=== PATIENT | male | born 1950 | race Caucasian/White ===

== ENCOUNTER → 2016-08-28 | Outpatient (CLI) | payer OTHER ==
[~2016-08-28] MED LIST: ABILIFY15 MG PO; CORDARONE 200M200 MG PO; DILTIAZEM 12HR60 MG PO; DILTIAZEM 24HR120 M1 PO; ELIQUIS5 MG PO; LANOXIN TAB0.125 MG PO; METOPROLOL SUC100 MG PO; WELLBUTRIN SR150 M1 PO
== END ==
LOC: CT 08-27 09:00 → OPSV 09:58 → CT 13:00
DX: D75.1 Secondary polycythemia (principal); R91.8 Other nonspecific abnormal finding of lung field
CPT/HCPCS: 70491; 71260; 74160; 96360; 96366; J7030; J7050; Q9962

== ENCOUNTER → 2016-10-01 | Outpatient (CLI) | payer OTHER | LOC: HEART 5 09:07 | DX: I10 Essential (primary) hypertension (principal); I48.2 Chronic atrial fibrillation | CPT/HCPCS: 93306 ==

== ENCOUNTER 2016-10-22 22:15 | Inpatient (IN) | payer OTHER ==
[~2016-10-22] VITALS: Ht 188 cm; Wt 109.0 kg
[2016-10-22 23:12] LABS: RED BLOOD COUNT 5.71 M/UL (4.20-5.50)
[2016-10-22 23:13] LABS: WHITE BLOOD COUNT 23.2 K/UL (4.5-11.0)
[2016-10-23] MEDS ORDERED: ELIQUIS5 MG PO (02:55)
[2016-10-23] MEDS ORDERED: LANOXIN TAB0.125 MG PO (02:55)
[2016-10-23] MEDS ORDERED: WELLBUTRIN SR150 M1 PO (02:55)
[2016-10-23] MEDS ORDERED: ABILIFY15 MG PO (02:56)
[2016-10-23] MEDS ORDERED: METOPROLOL SUC100 MG PO (02:56)
[2016-10-23] MEDS ORDERED: DILTIAZEM 24HR120 M1 PO (02:56)
[2016-10-23] MEDS ORDERED: CORDARONE 200M200 MG PO (02:58)
[2016-10-23] MEDS ORDERED: DILTIAZEM 12HR60 MG PO (02:58)
[2016-10-23 04:31] LABS: HEMOGLOBIN 18.9 gm/dl (14.0-17.5); RED BLOOD COUNT 5.97 M/UL (4.20-5.50)
[2016-10-23 05:05] LABS: WHITE BLOOD COUNT 26.8 K/UL (4.5-11.0)
[2016-10-23 11:20] LABS: HEMOGLOBIN 18.2 gm/dl (14.0-17.5); RED BLOOD COUNT 5.74 M/UL (4.20-5.50)
[2016-10-23 11:40] LABS: WHITE BLOOD COUNT 13.4 K/UL (4.5-11.0)
[2016-10-23 11:43] LABS: BUN/CREATININE RATIO 16 (0-10)
[2016-10-23 16:58] LABS: WHITE BLOOD COUNT 14.6 K/UL (4.5-11.0)
[2016-10-23 17:10] LABS: HEMOGLOBIN 16.1 gm/dl (14.0-17.5); RED BLOOD COUNT 5.13 M/UL (4.20-5.50)
[2016-10-23 22:11] LABS: GAMMA GLUTAMYL TRANSPEPTIDASE 44 U/L (7-64)
== END 2016-10-24 00:15 | disposition expired | DRG 871 ==
LOC: ER1 22:15 → ZEROF 10-23 00:44 → CCU 10-23 00:44
PROVIDERS: Internal Medicine; Internal Medicine Nephrology; Specialist/Technologist Athletic Trainer; ADMIT Internal Medicine
PROC: 5A1945Z Respiratory Ventilation, 24-96 Consecutive Hours (ICD-10-PCS; principal; 2016-10-23)
PROC: 05HM33Z Insertion of Infusion Device into Right Internal Jugular Vein, Percutaneous Approach (ICD-10-PCS; 2016-10-23)
PROC: B513ZZA Fluoroscopy of Right Jugular Veins, Guidance (ICD-10-PCS; 2016-10-23)
DX: A41.9 Sepsis, unspecified organism (principal); J96.01 Acute respiratory failure with hypoxia; R65.21 Severe sepsis with septic shock; N17.0 Acute kidney failure with tubular necrosis; E87.2 Acidosis; D68.9 Coagulation defect, unspecified; I42.0 Dilated cardiomyopathy; J90 Pleural effusion, not elsewhere classified; J98.11 Atelectasis; R18.8 Other ascites; N12 Tubulo-interstitial nephritis, not specified as acute or chronic; E87.5 Hyperkalemia; R00.1 Bradycardia, unspecified; D75.1 Secondary polycythemia; I48.91 Unspecified atrial fibrillation; I10 Essential (primary) hypertension; Z66 Do not resuscitate; F32.9 Major depressive disorder, single episode, unspecified; Z98.890 Other specified postprocedural states; Z79.02 Long term (current) use of antithrombotics/antiplatelets; Z79.899 Other long term (current) drug therapy; Z82.49 Family history of ischemic heart disease and other diseases of the circulatory system; E66.9 Obesity, unspecified; Z68.30 Body mass index [BMI] 30.0-30.9, adult; D72.829 Elevated white blood cell count, unspecified; F41.9 Anxiety disorder, unspecified; E03.9 Hypothyroidism, unspecified; I95.9 Hypotension, unspecified; I50.9 Heart failure, unspecified
CPT/HCPCS: 31500; 36415; 36600; 71010; 71250; 80048; 80053; 80162; 81001; 82150; 82550; 82553; 82803; 82977; 83605; 83615; 83690; 83735; 83874; 83880; 84100; 84484; 85025; 85384; 85610; 85730; 86140; 87040; 87081; 87086; 93005; 94002; 94003; 96374; 96375; 96376; 99291; C9113; J0171; J0461; J0610; J0692; J0696; J0698; J1160; J1265; J1644; J1815; J1956; J2020; J2185; J2370; J3370; J7030; J7050; J7070

== ENCOUNTER → 2016-10-22 | Outpatient (CLI) | payer OTHER ==
[2016-10-22 10:26] LABS: HEMOGLOBIN 16.9 gm/dl (14.0-17.5); RED BLOOD COUNT 5.41 M/UL (4.20-5.50); WHITE BLOOD COUNT 9.8 K/UL (4.5-11.0)
[2016-10-22 10:30] LABS: BUN/CREATININE RATIO 15 (0-10)
== END ==
LOC: LAB 09:31
PROVIDERS: Internal Medicine Cardiovascular Disease
DX: I10 Essential (primary) hypertension (principal); I48.2 Chronic atrial fibrillation; E03.9 Hypothyroidism, unspecified; J98.11 Atelectasis; J90 Pleural effusion, not elsewhere classified
CPT/HCPCS: 36415; 71020; 80048; 84439; 84443; 84481; 85025